=== PATIENT | male | born 1955 | race Hispanic/Latino ===

== ENCOUNTER 2018-09-19 11:30 | Emergency (ER) | payer OTHER ==
[~2018-09-19 11:30] MED LIST: ADRENALIN ONE
--- NOTE | 2018-09-19 13:57 | Emergency Department Report ---
ED CPR HPI - General Chief Complaint: Cardiac Arrest/CPR Stated Complaint: CARDIAC ARREST Time Seen by Provider: 09/19/18 11:30 Source: EMS Mode of arrival: Stretcher Limitations: Other - History of Present Illness Initial Comments: 62-year-old male with unknown past medical history presents to the hospital and cardiopulmonary arrest. [place] the [place] when he rolled down his window and asked bystanders for help because he did not feel good, he was nauseated, and he had edema. Upon EMS arrival patient was on the ground next to his car receiving a bystander CPR. They arrived within 3-5 minutes of call. Patient was in PEA arrest with noticeable pacemaker spikes. They stated that it appeared like the patient's defibrillator has shocked him several times. He is intubated with a David airway due to copious airway secretions that obstructed brush stainer's view to an intubation attempt. He presents with continued PEA arrest and had signs of central cyanosis. No previous medical record available for review to determine patient's past medical history. Patient received epinephrine 2 prior to arrival. ED Review of Systems ROS: Stated complaint: CARDIAC ARREST Other details as noted in HPI Comment: Unobtainable due to pts medical conditions ED Physical Exam - General Limitations: Other - Other Other exam information: General: Unresponsive Head exam: Atraumatic Eyes exam: Pupils fixed and dilated ENT: Orally intubated with David airway, secretion suctioned him a tongue cyanosis Neck exam: Normal inspection Respiratory exam: No spontaneous respirations, breath sounds with bagging Cardiovascular: Pulseless, left-sided pacemaker/defibrillator Abdomen: Soft, nondistended, and nontender Extremity: Full no spontaneous movement Back: Normal Inspection Neurologic: GCS equals 30 Psychiatric: Unresponsive Skin: Warm, dry ED Medical Decision Making - Medical Decision Making ER continue at the patient's arrival for PEA cardiopulmonary arrest. Blood Accu-Chek was in 303. Patient received 2 additional epinephrine doses and 1 sodium bicarbonate and remained in PEA cardiopulmonary arrest. Time of 11:36 We initially had difficulty finding a number for next of kin. Able to contact hospital admissions clerk on patient's defibrillator card was able to provide a phone number for the patient's . Patient's answered the phone identifying herself as Jada (same name of his on his facebook page) and the patient's . She states she was one hour away in [facility] and could not come to the ER immediately. She insisted that we tell her the condition of her prior to her arrival. She was informed that her is and was given the circumstances known about his . She was encouraged not to drive herself to the hospital given her level of grief. Patient was given the address to this hospital as well as the contact number for the ER. - Differential Diagnosis hypoxia, pulmonary edema, HI, unstable angina, arrhythmia Critical Care Time: Yes Critical care time in (mins) excluding proc time.: 15 Critical care attestation.: If time is entered above; I have spent that time in minutes in the direct care of this critically ill patient, excluding procedure time. ED Disposition Clinical Impression: Cardiopulmonary arrest Disposition: DC-20 Is pt being admited?: No Condition: Stable Time of Disposition: 14:36
[2018-09-19] MEDS ORDERED: ADRENALIN ONE (14:33)
== END 2018-09-19 12:30 ==
LOC: EDBD → ED 11:30
DX: I46.9 Cardiac arrest, cause unspecified (principal)
CPT/HCPCS: 31500; 36680; 82962; 99285; J0171